=== PATIENT | male | born 1970 | race Two or more races ===

== ENCOUNTER 2023-10-23 19:34 | Emergency (ER) | payer OTHER ==
[~2023-10-23] VITALS: Ht 177.8 cm; Wt 106.6 kg
[2023-10-23] MEDS ORDERED: IBUPROFEN 400 MG TABLET PO ONE (20:00)
[2023-10-23] MEDS ORDERED: IBUPROFEN 400 MG TABLET ONE (20:13)
[2023-10-23] MEDS ORDERED: IBUP-1953 PO (21:23)
[2023-10-23] MEDS ORDERED: TYL2T PO (21:23)
[2023-10-23 21:59] VITALS: BP 132/82; TEMP 98; O2SAT 98
== END 2023-10-23 21:59 | disposition home or self-care (01) ==
LOC: ER 19:39
DX: S92.191A Other fracture of right talus, initial encounter for closed fracture (principal); Z79.899 Other long term (current) drug therapy; Z60.2 Problems related to living alone; Z88.0 Allergy status to penicillin; W18.39XA Other fall on same level, initial encounter; Y93.89 Activity, other specified; Y92.89 Other specified places as the place of occurrence of the external cause; Y99.8 Other external cause status
CPT/HCPCS: 73030-TC; 73564-TC; 73590-TC; 73610-TC; 73630-TC